=== PATIENT | male | born 1985 | race Two or more races ===

== ENCOUNTER 2025-04-02 15:50 | Emergency (ER) | payer OTHER ==
[~2025-04-02] VITALS: Ht 177.8 cm; Wt 74.8 kg
[2025-04-02 15:51] VITALS: TEMP 98.2
[2025-04-02] MEDS: IV NS 0.9% 1,000 ML BAG IV ONE (16:30)
[2025-04-02 16:47] LABS: PLATELET COUNT (AUTO) 239 K/uL (150-450); RED BLOOD CELL COUNT(AUTO) 4.34 MIL/uL (4.5-6.0); RED CELL DISTRIBUTION WIDTH 15.2 % (11.5-15.0); WHITE BLOOD COUNT (AUTO) 13.1 K/uL (4.3-11.0)
[2025-04-02 16:58] LABS: CALCIUM, SERUM 9.2 mg/dL (8.5-10.1); CREATININE 0.9 mg/dL (0.6-1.3); SODIUM SERUM 136 mmol/L (136-145); UREA NITROGEN, BLOOD 15 mg/dL (7-18)
[2025-04-02 17:11] LABS: ASPARTATE AMINOTRANSFERASE 39 U/L (15-37); TOTAL PROTEIN, SERUM 7.9 g/dL (6.4-8.2)
[2025-04-02] MEDS ORDERED: DOCU-141 PO (17:35)
[2025-04-02] MEDS ORDERED: NALO4SPR BNOSTRILS (17:35)
[2025-04-02] MEDS ORDERED: ACETAMINOPHEN ES 500 MG TABLET ONE (17:44)
[2025-04-02] MEDS: ACETAMINOPHEN ES 500 MG TABLET PO ONE (17:49)
[2025-04-02 18:12] VITALS: BP 125/80; O2SAT 96
== END 2025-04-02 18:05 | disposition home or self-care (01) ==
LOC: ER 15:57
DX: K59.00 Constipation, unspecified (principal); R07.9 Chest pain, unspecified; R06.02 Shortness of breath; F19.10 Other psychoactive substance abuse, uncomplicated; R10.9 Unspecified abdominal pain; Z91.048 Other nonmedicinal substance allergy status
CPT/HCPCS: 99285; 74176; 96360; 71045; 93005; 76870; 85025; 80048; 83690; 80076; 36415; 84484; J7030